=== PATIENT | male | born 1965 | race Caucasian/White ===

== ENCOUNTER 2016-12-25 10:09 | Emergency (ER) | payer BC, OTHER ==
[~2016-12-25] VITALS: Ht 175.3 cm; Wt 88.5 kg
[~2016-12-25 10:09] MED LIST: ADDERALL 30 MG30 MG PO; DIOVAN320 MG PO; NAPROSYN500 MG PO; NORCO 5-325 TA1 EACH PO; PREDNISONE 20 M20 M1 PO; ZPAK PO; [UNRECOGNIZED DRUG - REMARK]
[2016-12-25] MEDS ORDERED: DIOVAN320 MG PO (10:16)
[2016-12-25] MEDS ORDERED: ULTRAM 50MG TAB50 MG PO (10:40)
[2016-12-25] MEDS ORDERED: NAPROSYN500 MG PO (10:43)
== END 2016-12-25 10:50 | disposition home or self-care (01) ==
LOC: ER 10:09
DX: S93.401A Sprain of unspecified ligament of right ankle, initial encounter (principal); I10 Essential (primary) hypertension; F17.210 Nicotine dependence, cigarettes, uncomplicated; X58.XXXA Exposure to other specified factors, initial encounter; Y93.89 Activity, other specified; Y92.89 Other specified places as the place of occurrence of the external cause; Y99.8 Other external cause status